=== PATIENT | male | born 1935 | race Caucasian/White ===

== ENCOUNTER 2018-03-01 10:58 | Inpatient (IN) | payer OTHER ==
[~2018-03-01] VITALS: Ht 175.3 cm; Wt 71.7 kg
[2018-03-01 11:10] VITALS: BP 147/48
[2018-03-01] MEDS ORDERED: CARBIDOPA-LEVO1 EAC7 PO (11:20)
[2018-03-01] MEDS ORDERED: ASPIR 8181 MG PO (11:20)
[2018-03-01] MEDS ORDERED: KEFLEX500 M1 PO (11:21)
[2018-03-01] MEDS ORDERED: ARICEPT 5 MG TAB5 MG (11:21)
[2018-03-01] MEDS ORDERED: PLAVIX 75 MG TA75 M1 PO (11:21)
[2018-03-01] MEDS ORDERED: SINEMET 25-1001 EAC1 PO (11:21)
[2018-03-01] MEDS ORDERED: LEVEMIR SUBQ (11:22)
[2018-03-01] MEDS ORDERED: NEURONTIN 400400 M1 PO (11:22)
[2018-03-01] MEDS ORDERED: PROPRANOLOL 1010 MG PO (11:22)
[2018-03-01] MEDS ORDERED: FLOMAX0.4 MG PO (11:22)
[2018-03-01 11:26] LABS: ABSOLUTE EOSINOPHILS 0.2 thou/uL (0.0-0.7); ABSOLUTE LYMPHOCYTES 1.4 thou/uL (0.8-5.3); ABSOLUTE MONOCYTES 0.8 thou/uL (0.0-1.2); ABSOLUTE NEUTROPHILS 10.2 thou/uL (1.6-8.1); BASOPHILS 0.2 %; EOSINOPHILS 1.9 %; HEMATOCRIT 37.6 % (42.0-52.0); HEMOGLOBIN 12.2 gm/dL (14.0-18.0); LYMPHOCYTES 11.3 %; MCH 31.6 pg (26.0-34.0); MCHC 32.4 g/dL (28.0-37.0); MCV 97.4 fL (80.0-100.0); MONOCYTES 6.6 %; MPV 7.1 fl. (7.2-11.1); NUCLEATED RBCS 0 /100WBC; PLATELET COUNT* 292 thou/uL (150-400); RBC 3.86 mil/uL (4.50-6.00); RDW-CV 13.2 % (10.5-14.5); WBC 12.7 thou/uL (4.0-11.0)
[2018-03-01 11:35] LABS: ANION GAP 2 mmol/L (7-16); BUN 30 mg/dL (7-18); CALCIUM 8.4 mg/dL (8.5-10.1); CHLORIDE 105 mmol/L (98-107); CO2 30 mmol/L (21-32); CREATININE 1.3 mg/dL (0.6-1.3); GLUCOSE 122 mg/dL (70-99); POTASSIUM 4.2 mmol/L (3.5-5.1); SODIUM 137 mmol/L (136-145)
[2018-03-01 11:45] LABS: ALBUMIN 2.4 g/dL (3.4-5.0); ALKALINE PHOSPHATASE 110 U/L (46-116); LIPASE 106 U/L (73-393); MAGNESIUM 1.8 mg/dL (1.8-2.4); NT-PRO BRAIN NAT PEPTIDE 8907 pg/mL (<300); SGOT 19 U/L (15-37); SGPT 5 U/L (30-65); TOTAL BILIRUBIN 0.7 mg/dL (<0.1-1.0); TOTAL PROTEIN 6.4 g/dL (6.4-8.2); TROPONIN-I LEVEL <0.06 ng/mL (<0.06)
[2018-03-01 15:16] VITALS: BP 165/48
[2018-03-01] MEDS ORDERED: MELATONIN3 MG PO (15:55)
[2018-03-01 16:00] VITALS: BP 141/48
--- NOTE | 2018-03-01 16:49 | EKG ---
[place] [address] ELECTROCARDIOGRAM REPORT Name: TIFFANI CHAUHAN Room: [address] ADM IN .R.#: [id number] Admission: 03/01/18 Attend Phys: Rosy Upton MD Discharge: Date of : 33 Report #: [id number] THIS REPORT FOR: //name// [facility] ED Test Date: 2018-03-01 Test Time: 11:09:21 Pat Name: TIFFANI CHAUHAN Department: Room: [facility] Gender: M Ordnance Keeper: Awais SOUTH : 1935 Requested By: Andre Jefferson Order Number: [id number] MD: Mustapha Lanier Measurements Intervals Wykoff Rate: 53 P: 22 AK: 178 QRS: 25 QRSD: 112 T: 227 QT: 456 QTc: 429 Interpretive Statements Sinus rhythm Probable LVH with secondary repol abnrm Possible inferior infarct, age indeterminate Baseline wander in lead(s) V1,V3 No previous ECG available for comparison Electronically Signed On 03-01-2018 16:48:41 CDT by Mustapha Lanier [email or web address] <ELECTRONICALLY SIGNED> By: Mustapha Lanier MD, FACC 03/01/18 1648 [id number] [id number] Mustapha Lanier MD, [facility] /EPI
--- NOTE | 2018-03-01 19:36 | NUR ---
PT. ARRIVED TO UNIT AT APPROX. 1545. PT A/OX4 WITH SOME NOTED FORGETFULNESS, VSS, MONITOR PLACED TRACING SB. PT. STATES HE HAS RIGHT SIDED CHEST PAIN WITH BREATHING/MOVEMENT 08/19. ADMISSION AND ASSESSMENT PROCESS COMPLETED, REFER TO CHARTING. PT. PARKINSON MEDS REORDERED PER HOME DOSE FROM DAUGHTER PER REQUEST. ALL OTHER HOME MEDS REORDERED WELL. DR. MAC ON UNIT TO SEE PT, ABLE TO DISCUSS PLAN WITH DAUGHTER AT BEDSIDE. PT. DAUGHTER DOES WISH TO SPEAK WITH CM ABOUT POSSIBLE PLACEMENT, SHE WISHES TO SPEAK WITH THEM PRIOR TO THEM SPEAKING WITH PT. PT. CURRENTLY LIVES AT HOME WITH DAUGHTER DARRELL. PT. ORIENTED TO ROOM/PROCEDURE. CALL LIGHT IN REACH, FALL PRECAUTIONS IN PLACE. WILL CONTINUE WITH PLAN OF CARE.
[2018-03-01 20:00] VITALS: BP 170/50
[2018-03-02] VITALS (16 sets, daily range): BP systolic 82–177; BP diastolic 53–79
--- NOTE | 2018-03-02 05:07 | NUR ---
PT ALERT ORIENTED X 4. PARKENSON'S TREMORS NOTED. UP TO BSC WITH ASSIST OF ONE. PT WEARING BRIEF WHEN HE CAME IN. REMOVED FOR SLEEP. PT ENCOURAGED TO CALL OUT TO STAFF FOR ASSIT WITH VOIDING. RESTING COMFORTABLY. L FOOT ULCER PICTURED AND PLACED IN CHART. WOUND NURSE CONSULTED. COCCYX SLIGHTLY RED. PT TURNED ON SIDE AT TIMES REFUSES TO BE ON SIDE AND LAYS FLAT ON BACK. TELEMETRY SHOWS SR/SB HR 60S-40S. WILL CONTINUE TO MONITOR.
--- NOTE | 2018-03-02 07:25 | NUR ---
DAUGHTER REFUSED PM INSULIN STATING HE TAKES IT IN THE AM BECAUSE HIS BS DROP. PM INSULIN HELD PER DTR REQUEST. INITALLY ON RA. O2 PLACED ON PT PER PT FOR SAT 89%
[2018-03-02 09:59] LABS: ANION GAP 6 mmol/L (7-16); BUN 32 mg/dL (7-18); CALCIUM 7.9 mg/dL (8.5-10.1); CHLORIDE 105 mmol/L (98-107); CHOLESTEROL 157 mg/dL (<200); CO2 26 mmol/L (21-32); CREATININE 1.2 mg/dL (0.6-1.3); GLUCOSE 112 mg/dL (70-99); HDL CHOLESTEROL 54 mg/dL (>40); LDL CHOLESTEROL 91 mg/dL (<100); POTASSIUM 4.2 mmol/L (3.5-5.1); SODIUM 137 mmol/L (136-145); TC:HDL 2.9 Ratio (Not establshd); TRIGLYCERIDE 61 mg/dL (<150); VLDL 12 mg/dL (<40)
[2018-03-02 10:00] LABS: SERUM ASSESSMENT Clear
--- NOTE | 2018-03-02 14:00 | NUR ---
PT JUST RETURNED FROM CATH, MET WITH DTR/DARRELL IN WAITING ROOM PER REQUEST. DTR TEARFUL AFTER RESULTS OF CATH. DISCUSSED HOME SITUATION/DC PLANNING. PT LIVES WITH DTR AND JOSEP/WHO IS A PHYSICAL THERAPIST. PT USES WALKER AND NEEDS ASSIST WITH ADLS, HAS BEEN NEEDING INCREASED HELP LATELY. DTR ALSO STATES FORGETFUL AND HAVING CONCERNS OVER SAFETY ISSUES. PT USED TO LIVE IN [facility] THE [facility], IS RETIRED FARM EQUIPMENT ENGINE MECHANIC. DTR STATED THEY WERE INTERESTED IN SNF AND POSSIBLE LTC. GAVE LIST, STATED PT HAD MENTIONED [facility]. DID CALL AND LEAVE VMAIL FOR ADMISSIONS, AWAIT CALL BACK. TALKED WITH DTR ABOUT LTC TRANSITION IF THEY DECIDE TO DO THAT. THEY WILL CONSIDER OTHER OPTIONS AND AWAIT THERAPY EVALS. ANTICIPATE DC FIRST OF WEEK. COPY OF DPOA AND AD ON CHART. DTR/DARRELL IS PRIMARY DPOA, OTHER CHILDREN LIVE OUT OF TOWN. WILL FOLLOW
--- NOTE | 2018-03-02 14:28 | NUR ---
Nutrition: PMHx: DM, CHF, PVD, HTN, Parkinsons. Admitted for chest pain. Has Left foot wound. RX: insulin, aspirin. +BM. Wt: 150#. NPO currently. Labs: alb 2.4, prealb 13.1, BG 96-226. Increased nutrient needs R/T wound healing AEB foot wound, PVD, labs above. RD ordered Ulises b.i.d. to aid in wound healing. Consider Mild nutritional risk at this time. Will follow up 03/07/18.
--- NOTE | 2018-03-02 15:45 | NUR ---
WOUND CARE NOTE: CONSULT RECEIVED FOR EVAL FOOT DECUB. PATIENT PRESENTS WITH A FULL THICKNESS ULCERATION TO THE LEFT LATERAL FOOT AT THE 5TH METATARSAL HEAD. WOUND BED IS RED, MOIST WITH A SMALL AREA OF YELLOW SLOUGH. MARCEL-WOUND IS EDEMATOUS AND RED. PALPABLE PEDAL PULSES. 2+ EDEMA TO LOWER EXTREMITY. PATIENT HAS HAD HIS 2ND TOE ON THE LEFT FOOT REMOVED, INCISION LINE HAS HEALED WELL. PATIENT STATES THAT HE HAD IT REMOVED A COUPLE OF YEARS AGO. PATIENT IS UNSURE OF THE ETIOLOGY OF THE WOUND, BUT HE DOES HAVE DIABETES. ADMITS TO HAVING SHOOTING PAINS IN HIS LEFT FOOT AT NIGHT. AFTER CLEANSING THE WOUND, APPLIED AQUACEL AG TO WOUND BED THEN SECURED WITH BORDERED FOAM. EDUCATED PATIENT ON DRESSING SELECTION, COMMUNICATED UNDERSTANDING. RECOMMEND TIGHT BLOOD GLUCOSE CONTROL ENCOURAGE GOOD NUTRTION/HYDRATION VASCULAR SURGERY CONSULT-ABNORMAL ARTERIAL STUDIES AND WOUND CARE FOLLOW UP IN WOUND CENTER CULTURES OF LEFT FOOT WOUND-DONE OFFLOAD PRESSURE AT WOUND SITE
--- NOTE | 2018-03-02 16:20 | CARD ---
[address] [address] CARDIAC CATH REPORT Name: TIFFANI CHAUHAN Marifer Room: [address] IN .R.#: [id number] Admission: 03/01/18 Attend Phys: Rosy Upton MD Discharge: Date of : 34 Report #: [id number] THIS REPORT FOR: //name// ADDENDUM APPROVED REPORT Study performed: 03/02/2018 11:02:06 Patient Details Patient Status: In-Patient Room #: 214 The patient is a 82 year-old male Event Personnel Mike Burt Senior Housekeeper, Kimberly Burgess, Ted Ingram (Kun Rea Tina RN Plug Wirer Procedures Performed Art Access - R radial artery , Left Heart CatheterizationLeft Heart Cath w/or w/o Coronaries [id number] [facility] , Selective Right and Left Coronary Angiography Procedure Narrative The patient was brought electively to the Cardiac Catheterization Laboratory and was prepped and draped in a sterile manner. The right femoral was infiltrated with 2% Lidocaine subcutaneous anesthesia. A 6fr Ultimum Sheath sheath was inserted into the right femoral artery. Coronary angiography was performed using coronary diagnostic catheters. The right coronary system was accessed and visualized with a 6fr JR 4 catheter. The left coronary system was accessed and visualized with a 6fr JL 4 catheter. The left ventricle was accessed and visualized with a 6fr Angled Pigtail catheter. Left ventricular/Aortic Valve gradient assessed via catheter pullback. Left ventriculogram was performed in MUNOZ projection. Pre-demployment femoral angiogram was performed . Closure device was deployed with a 6 Fr MynxGrip 6/7FMynx. The patient tolerated the procedure well and there were no complications associated with the procedure. Intraoperative Conscious Sedation Sedation start time: 12:23 Case end Time: 12:52 No sedation given. Fluoro Time: 3.2 minutes Dose: DAP 03915 cGycm2 886.21 mGy Contrast Type and Amount: Visipaque 180 [place] [address] CARDIAC CATH REPORT Name: TIFFANI CHAUHAN Room: [address] IN [facility]#: [id number] Admission: 03/01/18 Attend Phys: Rosy Upton MD Discharge: Date of : 34 Report #: [id number] Left Main normal LAD proximal 80%, long 95% mid body, small caliber distally, severely diseased Diagonal 1 small Circumflex nondomnant, occluded proximally collaterals present OM1 long 95%, RI distribution Right Coronary proximal 80% R PDA proximal 70% RPLV large severe 90% distal Left Ventriculography The left ventricle is moderately dilated in size with reduced contractility. The left ventricular ejection fraction is estimated to be 25-30%. Left ventricular wall motion abnormalities are present. There is no mitral insufficiency. severe apical hypokinesis, global dysfxn., no thrombus Hemodynamics The aortic pressure is 153/44 mmHg with a mean of mmHg. The left ventricular pressure is 157/16 mmHg with a mean of mmHg. The left ventricular end diastolic pressure is 28 mmHg. There was no gradient across the aortic valve upon pullback. Conclusion 1. multivessel CAD, as noted above 2. ischemic cardiomyopathy, severe LV dysfunction Recommendations Aggressive Medical Therapy consider high risk PCI <ELECTRONICALLY SIGNED> By: Mike Burt MD, FACC 03/02/18 1620 [id number] Burt MD, FACC /INF
[2018-03-03] VITALS: BP 124/59
[2018-03-03 04:00] VITALS: BP 144/48
--- NOTE | 2018-03-03 04:40 | NUR ---
END SHIFT: PT WAS ANXIOUS AT BEG OF SHIFT D/T CATH RESULTS TODAY, HOWEVER HE RESTED WELL WITH NO OTHER COMPLAINTS. NO PAIN. REFUSED TURNING AT TIMES. INCONT EPISODES NOTED. TREMOR RIGHT SIDE. RIGHT GROIN CDI. SR 1ST DEG ON MONITOR. CLARIFIED WITH DAUGHTER WHO DOES PATIENTS MEDS AT HOME THAT HE IN FACT DOES TAKE LANTUS IN THE AM AND NOT PM. WOUND DRESSING TO LEFT FOOT IS DRY AND INTACT. SAFETY PRECAUTIONS IN PLACE. CALL LIGHT IN REACH. PERFORMED HOURLY ROUNDING. WILL CONT TO MONITOR.
[2018-03-03 05:33] LABS: ALBUMIN 2.1 g/dL (3.4-5.0); ALKALINE PHOSPHATASE 102 U/L (46-116); ANION GAP 4 mmol/L (7-16); BUN 29 mg/dL (7-18); CALCIUM 7.5 mg/dL (8.5-10.1); CHLORIDE 107 mmol/L (98-107); CO2 29 mmol/L (21-32); CREATININE 1.3 mg/dL (0.6-1.3); GLUCOSE 94 mg/dL (70-99); MAGNESIUM 1.8 mg/dL (1.8-2.4); POTASSIUM 4.3 mmol/L (3.5-5.1); SGOT 18 U/L (15-37); SGPT < 6 U/L (30-65); SODIUM 140 mmol/L (136-145); TOTAL BILIRUBIN 0.4 mg/dL (<0.1-1.0); TOTAL PROTEIN 5.3 g/dL (6.4-8.2)
[2018-03-03 05:37] LABS: ABSOLUTE EOSINOPHILS 0.4 thou/uL (0.0-0.7); ABSOLUTE LYMPHOCYTES 1.4 thou/uL (0.8-5.3); ABSOLUTE NEUTROPHILS 7.6 thou/uL (1.6-8.1); BASOPHILS 0.1 %; HEMATOCRIT 32.8 % (42.0-52.0); HEMOGLOBIN 10.9 gm/dL (14.0-18.0); LYMPHOCYTES 13.4 %; MCH 32.7 pg (26.0-34.0); MCHC 33.3 g/dL (28.0-37.0); MONOCYTES 9.5 %; MPV 7.7 fl. (7.2-11.1); NUCLEATED RBCS 0 /100WBC; PLATELET COUNT* 250 thou/uL (150-400); RBC 3.34 mil/uL (4.50-6.00); RDW-CV 13.1 % (10.5-14.5); WBC 10.5 thou/uL (4.0-11.0)
[2018-03-03 08:00] VITALS: BP 158/47
--- NOTE | 2018-03-03 08:00 | NUR ---
RECEIVED WRITTEN REPORT AND ASSUMED CARE OF PT @ 0800.PT IS A/O BUT FORGETFUL AT TIMES.VSS,TRACING SB ON THE MONITOR.LUNG SOUNDS ARE CLEAR DIMINSHED ON ROOM AIR.LAST BM WAS 03/01/18.PT IS INCONT OF BLADDER.IV PATENT AND SALINE LOCKED.PT IS CALM AND COOPERATIVE WITH NO C/O PAIN AT TIME OF ASSESSMENT.FAMILY AT BEDSIDE.PT IS UP WITH 1-2 ASSIST TO BSC OR CHAIR.PT SAT UP IN CHAIR FOR SEVERAL HOURS THIS AM.PT LEFT RESTING IN BED WITH CALL LIGHT AND FALL PRECAUTIONS IN PLACE.WILL CONTINUE TO MONITOR.
[2018-03-03 11:35] VITALS: BP 142/46
[2018-03-03 16:00] VITALS: BP 132/54
--- NOTE | 2018-03-03 18:12 | NUR ---
VSS,CARDIAC MONITORING IN PLACE WITH NO CHANGES.PT REMAINS ON 2L O2 NC.PT PROGRESSING TOWARDS GOALS.NO C/O PAIN.IV ANTIBIOTICS GIVEN.Q2 HOUR POSITION CHANGE.PT WORKED WITH PT/OT AND WAS UP IN CHAIR FOR A COUPLE OF HOURS.HOURLY ROUNDING COMPLETED FOR PT SAFETY.CALL LIGHT AND FALL PRECAUTIONS IN PLACE.WILL CONTINUE TO MONITOR FOR DURATION OF SHIFT.
[2018-03-03 20:00] VITALS: BP 150/54
[2018-03-04] VITALS: BP 136/49
[2018-03-04 04:00] VITALS: BP 150/52
--- NOTE | 2018-03-04 05:16 | NUR ---
ASSUMED CARE OF PATIENT AT 1900 THE PATIENT REMAINS SB ON THE TELEMONITOR O2 SAT IS MAINTAINED ON 2L NC THE PATIENT CONTINUES TO HAVE INCONT EPISODES HOWEVER IS ABLE TO ALERT STAFF AFTER OCCURENCE ROUTINE INTERVENTIONS CONTINUE TO BE EFFECTIVE FOR SX MANAGEMENT PATIENT CONTINUES TO PROGRESS TOWARDS GOALS NIGHT UNEVENTFUL SAFETY INTERVENTIONS CONTINUE BED LOWERED WHEELS LOCKED SIDE RAILS UP X 2 CALL LIGHT IN REACH REPORT TO BE GIVEN TO GIOVANI MOORE
[2018-03-04 08:00] VITALS: BP 162/61
--- NOTE | 2018-03-04 11:49 | NUR ---
RECEIVED REPORT FROM LANNY AND ASSUMED CARE @ 6241.PT IS A/O BUT FORGETFUL AT TIMES.VSS, TRACING SB ON THE MONITOR.PT HAD CRITICALLY LOW BLOOD GLUCOSE THIS AM-DRANK JUICE AND PEANUT BUTTER AND YOVANNY CRACKERS TO INCREASE.LUNG SOUNDS ARE CLEAR DIMINSHED.LAST BM WAS YESTERDAY.IV PATENT AND SALINE LOCKED.PT IS CALM AND COOPERATIVE WITH NO C/O PAIN AT TIME OF ASSESSMENT.PT IS UP WITH TWO TO BSC OR CHAIR.PT LEFT RESTING IN BED WITH CALL LIGHT AND FALL PRECAUTIONS IN PLACE. WILL CONTINUE TO MONITOR.
[2018-03-04 12:07] VITALS: BP 143/57
[2018-03-04 16:02] VITALS: BP 174/79
--- NOTE | 2018-03-04 18:55 | NUR ---
VSS,CARDIAC MONITORING IN PLACE WITH NO CHANGES.PT ON ROOM AIR.PT PROGRESSING TOWARDS GOALS.NO C/O PAIN.IV ANTIBIOTICS GIVEN.Q2 HOUR POSITION CHANGE.PICTURES TAKEN OF WOUNDS.DRESSING CHANGED.PT UP TO CHAIR FOR SEVERAL HOURS.HOURLY ROUNDING COMPLETED FOR PT SAFETY.CALL LIGHT AND FALL PRECAUTIONS IN PLACE.WILL CONTINUE TO MONITOR FOR DURATION OF SHIFT.
[2018-03-04 20:18] VITALS: BP 166/80
[2018-03-05] VITALS: BP 137/69
[2018-03-05 04:00] VITALS: BP 138/68
--- NOTE | 2018-03-05 06:40 | NUR ---
PT IS ABLE TO COMMUNICATE HIS NEEDS TO STAFF EFFECTIVELY, HE IS FORGETFUL AT TIMES. HE HAS DENIED THE NEED FOR PAIN MEDICATION UP TO THIS TIME. TREMOURS FREQUENTLY; PARKINSON'S DISEASE. PT/OT/ST CONSULTED. POSSIBLE D/C TO A SNF IN A DAY OR TWO.
--- NOTE | 2018-03-05 07:25 | NUR ---
CHANGE OF SHIFT BEDSIDE REPORT GIVEN PATIENT SEEN AT BEDSIDE, IN BED ASLEEP ASSUMED PATIENT CARE
[2018-03-05 08:00] VITALS: BP 138/74
--- NOTE | 2018-03-05 08:56 | NUR ---
HEARD BACK FROM [facility], THEY DO HAVE A BED AVAILABLE. FAXED REFERRAL TO HER FOR SNF
[2018-03-05 12:25] VITALS: BP 115/57
--- NOTE | 2018-03-05 14:57 | NUR ---
RE: HEART FAILURE MEDICATION EDUCATION. ATTEMPTED TO SPEAK W/PT ABOUT HEART FAILURE MEDICATION. PT'S DAUGHTER REQUESTED I SPEAK TO HER, STATING SHE COORDINATES HIS MEDICATION & PT WOULD NOT BE RECEPTIVE TO DISCUSSION. DISCUSSION FOCUSED ON CARVEDILOL, LISINOPRIL AND SPIRONOLACTONE. WE REVIEWED RATIONALE FOR THERAPY. DISCUSSED IMPORTANCE ADHERENCE TO PRESCRIBED REGIMEN. WE REVIEWED POSSIBLE SIDE EFFECTS OF MEDICATION AND MANAGEMENT OF RISKS OF THESE EFFECTS. LEFT MEDICATION INFORMATION WITH PT'S DAUGHTER. PROVIDED PHARMACY CONTACT INFORMATION FOR ANY FURTHER QUESTIONS OR ISSUES. THANK YOU.
[2018-03-05 16:00] VITALS: BP 115/51
[2018-03-05 20:00] VITALS: BP 151/76
--- NOTE | 2018-03-05 20:00 | NUR ---
RECEIVED REPORT AND ASSUMED CARE OF PT, ASSESSMENT COMPLETED. C/O PAIN INTO BACK INCISION. WILL OBTAIN MED ORDER. DRSG DRY AND INTACT. INCONT OF URINE, ASSISTED WITH REPOSITIONING FOR CLEANING. SACRAL AREA RED, NO BREAKDOWN NOTED. DRSG TO LT FOOT DRY AND INTACT. TELEMETRY ON SHOWING SR. WILL CONT TO MONITOR AND ASSIST NEEDED.
[2018-03-06] VITALS: BP 140/69
[2018-03-06 04:00] VITALS: BP 114/46
--- NOTE | 2018-03-06 05:55 | NUR ---
SLEPT WELL. REPOSITIONED Q 2HR. PO PAIN MED GIVEN X1 AND EFFECTIVE. NO CHANGE IN ASSESSMENT. INCONT OF URINE. TELEMETRY CONT TO SHOW SR. HS GOALS OF REST AND SAFETY ACHIEVED. HOURLY ROUNDING OBSERVED.
[2018-03-06 08:20] VITALS: BP 137/65
--- NOTE | 2018-03-06 12:04 | NUR ---
CONTINUE TO FOLLOW, PLAN DC TODAY. SPOKE WITH [facility], THEY HAVE CLINICALLY ACCEPTED PT BUT AWAITING INSURANCE AUTH.
[2018-03-06] MEDS ORDERED: SPIRONOLACTONE25 MG PO (12:35)
[2018-03-06] MEDS ORDERED: CARBIDOPA-LEVO1 EAC7 PO ×2 (12:35)
[2018-03-06] MEDS ORDERED: COREG6.25 MG PO (12:35)
[2018-03-06] MEDS ORDERED: SINEMET 25-1001 EAC1 PO ×3 (12:35)
[2018-03-06] MEDS ORDERED: DOXYCYCLINE 10100 MG PO (12:35)
[2018-03-06] MEDS ORDERED: LASIX 20 MG TAB20 MG PO (12:35)
[2018-03-06] MEDS ORDERED: IMDUR 30 MG TAB30 M1 PO (12:35)
[2018-03-06] MEDS ORDERED: PRINIVIL5 MG PO (12:35)
[2018-03-06] MEDS ORDERED: CARVEDILOL3.125 MG PO (12:35)
--- NOTE | 2018-03-06 14:52 | NUR ---
SPOKE WITH ARLIN/EYAD AGAIN, SHE STATED THAT INSURANCE WAS ASKING FOR MORE DETAILS ON OT EVAL. CALL TO INSURANCE REVIEWER, SHE STATED SHE HAD INFO IN EMR AND WOULD REVIEW IT SOON FOR SNF AUTH, MAY NOT HAVE BY END OF DAY TODAY. UPDATED ARLIN/EYAD ON ISSUE. AWAIT CALL BACK WITH AUTH
[2018-03-06 17:11] VITALS: BP 137/65
--- NOTE | 2018-03-06 18:05 | NUR ---
PATIENT DISCHARGED TO [facility] ALL DISCHARGE INFORMATION GIVEN, COPIES SENT IV AND HEART MONITOR REMOVED PAERSONAL BELONGINGS RETURNED REPORT GIVEN TO NURSE GARCIA AT [facility] PATIENT ASSISTED TO WC AND PICKED UP WC VAN
--- NOTE | 2018-03-17 12:10 | CON ---
[address] [address] CONSULTATION Name: TIFFANI CHAUHAN Room: [address] IN M.R.#: [id number] Admission: 03/01/18 Attend Phys: Rosy Upton MD Discharge: 03/06/18 Date of : 33 Report #: [id number] THIS REPORT FOR: //name// CC: Rosy Upton Physician staff LATOYA JOSE RAMON DATE OF SERVICE: 03/02/2018 INPATIENT CONSULTATION REQUESTING PHYSICIAN: Rosy Upton M.D. CHIEF COMPLAINT: Chest pain. HISTORY OF PRESENT ILLNESS: The patient is an 82-year-old male who has a history of peripheral vascular disease, who had a severe episode of chest discomfort yesterday. It was central and right sided. It did not radiate. He was not diaphoretic. He has been short of breath. His ECG demonstrated sinus rhythm with diffuse ST-segment depression 1-3 mm along with poor R-wave progression. He has no documented history of coronary artery disease, but has a history of severe peripheral vascular disease. His symptoms of chest discomfort really started about a week ago, but he had a severe episode yesterday. He has significant Parkinson disease and has to walk with a walker. There was a record of a slight fall about a week ago and he was not complaining of chest pain at that time, though. He is anticoagulated with Plavix. PAST MEDICAL HISTORY: He has a history of prior carotid endarterectomy in 2013. That same year, he underwent a [employer] and stenting for a left lower extremity non-healing diabetic foot ulcer. He has insulin-requiring diabetes. He has hypertension and Parkinson disease. He has a remote history of silent CVA, according to his daughter; he had a routine CT scan, which showed a small vessel infarct, according to the patient, without any clinical symptoms. He has been on aspirin and Plavix since then and has not had any peripheral procedures or neurovascular events. As above, he has a history of a non-healing ulcer on his left foot also, which was treated as an outpatient with Keflex. HOME MEDICATIONS: Include aspirin, Plavix, donepezil, carbidopa 50/200 mg daily, propranolol 80 mg daily, Flomax 0.4 mg [place] [address] CONSULTATION Name: TIFFANI CHAUHAN Room: [address]#: [id number] Admission: 03/01/18 Attend Phys: Rosy Upton MD Discharge: 03/06/18 Date of : 33 Report #: [id number] PAST SURGICAL HISTORY: He has no recent surgeries. SOCIAL HISTORY: He is a nonsmoker, nondrinker. REVIEW OF SYSTEMS: GENERAL: He has not had any febrile illnesses, cough, fevers or chills. HEENT: No visual changes, numbness or slurred speech. NEUROLOGIC: No seizures. He does have a history of right-sided tremor. HEMATOLOGIC: No anemia or bleeding disorders. RENAL: No history of kidney failure. ENDOCRINE: Positive for diabetes. No history of thyroid disease. CARDIOVASCULAR: Positive for chest pain. Positive for dyspnea on exertion. ALLERGIES: No aspirin or contrast allergies. PHYSICAL EXAMINATION: VITAL SIGNS: Stable. Blood pressure is in the 120s/60s. He is bradycardic with heart rates in the 50s, in a sinus mechanism. His O2 sats are 100% on 2 liters nasal cannula. GENERAL: This is a thin elderly male. He is alert, in no apparent distress. He is oriented, but has a poor medical history. HEENT: There is mild facial droop. NECK: Supple. There is no jugular venous distention. CARDIOVASCULAR EXAMINATION: Regular. There is a faint systolic murmur. There is no rub or gallop. LUNGS: Clear to auscultation, diminished breath sounds in the bases. ABDOMEN: Nontender. EXTREMITIES: There is no peripheral edema. Pulses, radial and femoral pulses are intact. Distal dorsalis pedis pulses are significantly reduced. Distal extremities are warm. LABORATORY DATA: A CT scan of the chest was done yesterday, which showed no CT evidence for pulmonary embolism, but findings were consistent with congestive heart failure. Chest x-ray revealed possible pneumonia in the left lower lobe. White blood cell count is 12.7. ECG as noted above. Cardiac troponin levels 0.06 x 4 sets. IMPRESSION AND PLAN: 1. Amfsh-gq-wbugwva systolic congestive heart failure. I suspect his CT findings are correct given his numerous cardiovascular risk factors. 2. Chest pain. His symptoms are a bit atypical, but his ECG is significantly abnormal and he has numerous cardiovascular risk factors and inclusive of this is significant peripheral vascular disease. I discussed at length with his daughter and the patient different diagnostic and treatment options and recommended an evaluation with a cardiac catheterization as he may not be safe for evaluation with a stress test. [address] [place] [address] CONSULTATION Name: TIFFANI CHAUHAN Room: [address] IN M.R.#: [id number] Admission: 03/01/18 Attend Phys: Rosy Upton MD Discharge: 03/06/18 Date of : 34 Report #: [id number] 3. Peripheral vascular disease. As noted above, he has had a prior carotid endarterectomy and lower extremity revascularization. 4. Bradycardia. I will hold his propranolol for the time being. 5. Diabetes mellitus, as per our hospital colleagues. <ELECTRONICALLY SIGNED> By: Mike Burt MD, FACC 03/17/18 1210 0946 [id number] Burt MD, FACC /nt
== END 2018-03-06 18:26 | DRG 286 ==
LOC: M.ERS 10:58 → M.TBA-ER 13:54 → M.2W 13:54
PROVIDERS: Emergency Medicine Emergency Medical Services; Internal Medicine Cardiovascular Disease; ADMIT Internal Medicine
PROC: B2151ZZ Fluoroscopy of Left Heart using Low Osmolar Contrast (ICD-10-PCS; principal; 2018-03-02)
PROC: B2111ZZ Fluoroscopy of Multiple Coronary Arteries using Low Osmolar Contrast (ICD-10-PCS; principal; 2018-03-02)
PROC: 4A023N7 Measurement of Cardiac Sampling and Pressure, Left Heart, Percutaneous Approach (ICD-10-PCS; principal; 2018-03-02)
PROC: 0W9K0ZZ Drainage of Upper Back, Open Approach (ICD-10-PCS; 2018-03-05)
DX: I25.10 Atherosclerotic heart disease of native coronary artery without angina pectoris (principal); J15.6 Pneumonia due to other Gram-negative bacteria; L02.212 Cutaneous abscess of back [any part, except buttock and flank]; L03.116 Cellulitis of left lower limb; I50.22 Chronic systolic (congestive) heart failure; I11.0 Hypertensive heart disease with heart failure; R07.89 Other chest pain; I25.5 Ischemic cardiomyopathy; L89.892 Pressure ulcer of other site, stage 2; G20 Parkinson's disease; L72.3 Sebaceous cyst; I70.203 Unspecified atherosclerosis of native arteries of extremities, bilateral legs; R00.1 Bradycardia, unspecified; R13.10 Dysphagia, unspecified; E11.51 Type 2 diabetes mellitus with diabetic peripheral angiopathy without gangrene; Z88.8 Allergy status to other drugs, medicaments and biological substances; Z79.82 Long term (current) use of aspirin; Z79.899 Other long term (current) drug therapy; Z79.4 Long term (current) use of insulin; Z95.820 Peripheral vascular angioplasty status with implants and grafts